=== PATIENT | female | born 1995 | race African-American/Black ===

== ENCOUNTER 2023-02-26 00:32 | Emergency (ER) | payer SELFPAY ==
[~2023-02-26] VITALS: Ht 167.6 cm; Wt 63.0 kg
[2023-02-26 00:35] VITALS: BP 127/80; PULSE 62; RESP 18; TEMP 98.6; O2SAT 99
[2023-02-26] MEDS ORDERED: LORAZEPAM 1MG TABLET PO ONE (02:30)
== END 2023-02-26 03:15 | disposition home or self-care (01) ==
LOC: ER 00:32
DX: F15.10 Other stimulant abuse, uncomplicated (principal)
CPT/HCPCS: 99283